=== PATIENT | male | born 1945 | race Caucasian/White ===

== ENCOUNTER 2022-08-08 18:55 | Inpatient (IN) | payer OTHER ==
[~2022-08-08] VITALS: Ht 190.5 cm; Wt 101.4 kg
[2022-08-08] MEDS ORDERED: methylPREDNISolone SOD SUCC 125 MG/2 ML VL IV ONE (19:15)
[2022-08-08 19:43] LABS: Basophils # (auto) 0 10 ^3/uL (0-0.2); Basophils % (auto) 0.3 % (0.0-2.0); Eosinophils # (auto) 0.2 10 ^3/uL (0-0.8); Hematocrit 45.2 % (41.0-53.0); Hemoglobin 15.4 g/dL (13.5-17.5); Lymphocytes # (auto) 1.7 10 ^3/uL (0.4-5.4); Lymphocytes % (auto) 15.8 % (10.0-50.0); Mean Corpuscular Hemoglobin 30.4 pg (28.0-32.0); Mean Corpuscular Hgb Conc. 34.1 g/dL (32.0-36.0); Mean Corpuscular Volume 89.3 fL (80.0-100.0); Monocytes # (auto) 0.9 10 ^3/uL (0-1.3); Monocytes % (auto) 8.2 % (0.0-12.0); Neutrophils % (auto) 73.7 % (37.0-80.0); Red Blood Cells 5.06 10^6/uL (4.5-5.90); Red Cell Distribution Width 13.5 % (11.8-14.3); White Blood Cell 10.9 10^3/uL (4.4-10.8)
[2022-08-08 20:02] LABS: Albumin 3.4 g/dL (3.4-5.0); BUN/Creatinine Ratio 23.4; Calcium 9.4 mg/dL (8.5-10.1); Magnesium 1.9 mg/dL (1.6-2.6); Potassium 3.8 mmol/L (3.5-5.1)
[2022-08-08 20:04] LABS: Bilirubin, Total 0.6 mg/dL (0.2-1.0); Total Protein 7.4 g/dL (6.4-8.2)
[2022-08-08] MEDS ORDERED: HEPARIN SODIUM (PORCINE) 5000 UNITS/ML 1ML VIAL IV ONE (21:00)
[2022-08-08] MEDS ORDERED: HEPARIN DRIP/D5W 100UNITS/ML 250 ML IV SCH (21:00)
[2022-08-08 22:06] LABS: INR 1.08 (0.9-1.15); Partial Thromboplastin Time 29.3 sec (24.6-33.4)
[2022-08-08] MEDS ORDERED: NITROGLYCERIN 0.4 MG SL TAB SL PRN (22:45)
[2022-08-08] MEDS ORDERED: MORPHINE SULFATE INJ 2 MG/ml SYRG IV PRN (22:45)
[2022-08-08] MEDS ORDERED: ONDANSETRON HCL 4 MG/2 ML VIAL IV PRN (22:45)
[2022-08-08] MEDS: D5W/SOD CHLO 0.9% 1,000 ML IV SCH (23:17)
[2022-08-09 00:53] LABS: Urine Bacteria NONE SEEN /hpf (None Seen); Urine Blood 1+ /uL (Negative); Urine Mucus FEW (None Seen); Urine WBC 3 /hpf (0 - 3)
[2022-08-09 01:00] LABS: Urine Specific Gravity > 1.050 (1.001-1.035)
[2022-08-09 04:35] LABS: Basophils # (auto) 0 10 ^3/uL (0-0.2); Basophils % (auto) 0.1 % (0.0-2.0); Eosinophils # (auto) 0 10 ^3/uL (0-0.8); Eosinophils % (auto) 0.1 % (0.0-7.0); Hematocrit 44.9 % (41.0-53.0); Hemoglobin 15.3 g/dL (13.5-17.5); Lymphocytes % (auto) 12.6 % (10.0-50.0); Mean Corpuscular Hgb Conc. 34.2 g/dL (32.0-36.0); Mean Corpuscular Volume 87.7 fL (80.0-100.0); Monocytes # (auto) 0.2 10 ^3/uL (0-1.3); Neutrophils % (auto) 84.2 % (37.0-80.0); Nucleated Red Blood Cells % 0.1 %; Red Blood Cells 5.12 10^6/uL (4.5-5.90); Red Cell Distribution Width 13.8 % (11.8-14.3); White Blood Cell 8.3 10^3/uL (4.4-10.8)
[2022-08-09 04:39] LABS: INR 1.1 (0.9-1.15)
[2022-08-09 04:50] LABS: Albumin 3.1 g/dL (3.4-5.0); BUN/Creatinine Ratio 21.4; Potassium 4.3 mmol/L (3.5-5.1)
[2022-08-09 04:53] LABS: Bilirubin, Total 0.5 mg/dL (0.2-1.0)
[2022-08-09] MEDS: HEPARIN DRIP/D5W 100UNITS/ML 250 ML IV SCH ×2 (05:53→12:34)
[2022-08-09] MEDS: ASPirin 325 MG TAB PO ONE ×2 (08:47→08:48)
[2022-08-09] MEDS ORDERED: PANTOPRAZOLE 40 MG/10 ML VIAL INJ IV SCH (10:00)
[2022-08-09 11:01] LABS: INR 1.13 (0.9-1.15)
[2022-08-09] MEDS ORDERED: TRIATAB3 PO (11:04)
[2022-08-09] MEDS ORDERED: LOSA-69 PO (11:05)
[2022-08-09] MEDS ORDERED: PANT1INJ3 PO (11:05)
[2022-08-09 11:17] LABS: Partial Thromboplastin Time 75.4 sec (24.6-33.4)
[2022-08-09] MEDS: D5W/SOD CHLO 0.9% 1,000 ML IV SCH (12:05)
[2022-08-09 15:09] VITALS: BP 123/78
[2022-08-09 17:13] VITALS: BP 119/84
[2022-08-09] MEDS: ENOXAPARIN SOD 100 MG/1 ML SYRINGE SC SCH (17:44)
[2022-08-09 19:27] LABS: INR 1.12 (0.9-1.15); Partial Thromboplastin Time 48.1 sec (24.6-33.4)
[2022-08-10] MEDS: D5W/SOD CHLO 0.9% 1,000 ML IV SCH ×2 (01:25→14:45)
[2022-08-10 05:00] VITALS: BP 115/66
[2022-08-10] MEDS: ENOXAPARIN SOD 100 MG/1 ML SYRINGE SC SCH ×2 (05:26→17:09)
[2022-08-10 06:11] LABS: Basophils # (auto) 0 10 ^3/uL (0-0.2); Basophils % (auto) 0.1 % (0.0-2.0); Eosinophils # (auto) 0 10 ^3/uL (0-0.8); Eosinophils % (auto) 0.4 % (0.0-7.0); Hematocrit 40.8 % (41.0-53.0); Hemoglobin 14.2 g/dL (13.5-17.5); Lymphocytes % (auto) 17.2 % (10.0-50.0); Mean Corpuscular Hemoglobin 30.5 pg (28.0-32.0); Mean Corpuscular Hgb Conc. 34.8 g/dL (32.0-36.0); Mean Corpuscular Volume 87.8 fL (80.0-100.0); Monocytes # (auto) 0.9 10 ^3/uL (0-1.3); Monocytes % (auto) 7.3 % (0.0-12.0); Neutrophils # (auto) 8.7 10 ^3/uL (1.6-8.6); Red Blood Cells 4.64 10^6/uL (4.5-5.90); Red Cell Distribution Width 13.8 % (11.8-14.3); White Blood Cell 11.6 10^3/uL (4.4-10.8)
[2022-08-10 06:25] LABS: Albumin 2.9 g/dL (3.4-5.0); BUN/Creatinine Ratio 24.8; Calcium 8.8 mg/dL (8.5-10.1); Potassium 3.9 mmol/L (3.5-5.1)
[2022-08-10 06:28] LABS: Bilirubin, Total 0.5 mg/dL (0.2-1.0)
[2022-08-10 09:00] VITALS: BP 114/73
[2022-08-10] MEDS: PANTOPRAZOLE 40 MG TAB PO SCH (09:09)
[2022-08-10] MEDS: ASPirin 81 mg TAB PO SCH (09:09)
[2022-08-10 13:00] VITALS: BP 114/74
[2022-08-10 17:00] VITALS: BP 107/70
[2022-08-10 22:21] VITALS: BP 116/71
[2022-08-11 05:09] LABS: Basophils # (auto) 0.1 10 ^3/uL (0-0.2); Basophils % (auto) 0.9 % (0.0-2.0); Eosinophils # (auto) 0.1 10 ^3/uL (0-0.8); Eosinophils % (auto) 2.1 % (0.0-7.0); Hematocrit 39.7 % (41.0-53.0); Hemoglobin 13.6 g/dL (13.5-17.5); Lymphocytes # (auto) 1.8 10 ^3/uL (0.4-5.4); Lymphocytes % (auto) 28.1 % (10.0-50.0); Mean Corpuscular Hemoglobin 30.4 pg (28.0-32.0); Mean Corpuscular Hgb Conc. 34.1 g/dL (32.0-36.0); Mean Corpuscular Volume 88.9 fL (80.0-100.0); Monocytes # (auto) 0.6 10 ^3/uL (0-1.3); Monocytes % (auto) 9.7 % (0.0-12.0); Neutrophils # (auto) 3.9 10 ^3/uL (1.6-8.6); Neutrophils % (auto) 59.2 % (37.0-80.0); Red Blood Cells 4.47 10^6/uL (4.5-5.90); Red Cell Distribution Width 13.7 % (11.8-14.3); White Blood Cell 6.6 10^3/uL (4.4-10.8)
[2022-08-11 05:26] LABS: Albumin 2.8 g/dL (3.4-5.0); Calcium 8.5 mg/dL (8.5-10.1); Potassium 4.2 mmol/L (3.5-5.1)
[2022-08-11 05:29] LABS: BUN/Creatinine Ratio 27.4
[2022-08-11 05:30] VITALS: BP 110/68
[2022-08-11 05:32] LABS: Bilirubin, Total 0.5 mg/dL (0.2-1.0); Total Protein 5.7 g/dL (6.4-8.2)
[2022-08-11] MEDS: ENOXAPARIN SOD 100 MG/1 ML SYRINGE SC SCH ×2 (05:34→17:15)
[2022-08-11 08:04] VITALS: BP 111/69
[2022-08-11] MEDS: ASPirin 81 mg TAB PO SCH (09:56)
[2022-08-11] MEDS: PANTOPRAZOLE 40 MG TAB PO SCH (09:56)
[2022-08-11 12:26] VITALS: BP 113/68
[2022-08-11 17:00] VITALS: BP 128/76
[2022-08-11 20:00] VITALS: BP 120/74
[2022-08-11 22:00] VITALS: BP 120/74
[2022-08-12 05:00] VITALS: BP 121/66
[2022-08-12] MEDS: ENOXAPARIN SOD 100 MG/1 ML SYRINGE SC SCH ×2 (06:52→17:37)
[2022-08-12 07:48] LABS: Basophils # (auto) 0 10 ^3/uL (0-0.2); Basophils % (auto) 0.6 % (0.0-2.0); Eosinophils # (auto) 0.2 10 ^3/uL (0-0.8); Eosinophils % (auto) 2.5 % (0.0-7.0); Hematocrit 40.6 % (41.0-53.0); Hemoglobin 13.4 g/dL (13.5-17.5); Lymphocytes # (auto) 1.7 10 ^3/uL (0.4-5.4); Lymphocytes % (auto) 27.1 % (10.0-50.0); Mean Corpuscular Hemoglobin 29.6 pg (28.0-32.0); Mean Corpuscular Hgb Conc. 33.1 g/dL (32.0-36.0); Mean Corpuscular Volume 89.6 fL (80.0-100.0); Monocytes # (auto) 0.7 10 ^3/uL (0-1.3); Monocytes % (auto) 10.6 % (0.0-12.0); Neutrophils # (auto) 3.7 10 ^3/uL (1.6-8.6); Neutrophils % (auto) 59.2 % (37.0-80.0); Nucleated Red Blood Cells % 0.1 %; Red Blood Cells 4.53 10^6/uL (4.5-5.90); Red Cell Distribution Width 13.7 % (11.8-14.3); White Blood Cell 6.2 10^3/uL (4.4-10.8)
[2022-08-12 08:06] LABS: Potassium 3.7 mmol/L (3.5-5.1)
[2022-08-12 08:13] LABS: Albumin 2.7 g/dL (3.4-5.0); BUN/Creatinine Ratio 23.1; Bilirubin, Total 0.4 mg/dL (0.2-1.0); Calcium 8.6 mg/dL (8.5-10.1); Total Protein 5.9 g/dL (6.4-8.2)
[2022-08-12 09:00] VITALS: BP 136/85
[2022-08-12] MEDS: ASPirin 81 mg TAB PO SCH (09:34)
[2022-08-12] MEDS: PANTOPRAZOLE 40 MG TAB PO SCH (09:34)
[2022-08-12 12:43] VITALS: BP 117/77
[2022-08-12 17:01] VITALS: BP 143/77
[2022-08-12 20:00] VITALS: BP 136/88
[2022-08-12 22:00] VITALS: BP 139/88
[2022-08-13 05:00] VITALS: BP 118/76
[2022-08-13] MEDS: ENOXAPARIN SOD 100 MG/1 ML SYRINGE SC SCH ×2 (05:54→17:35)
[2022-08-13 08:01] LABS: Basophils # (auto) 0 10 ^3/uL (0-0.2); Basophils % (auto) 0.6 % (0.0-2.0); Eosinophils # (auto) 0.2 10 ^3/uL (0-0.8); Eosinophils % (auto) 2.8 % (0.0-7.0); Hematocrit 38.7 % (41.0-53.0); Hemoglobin 13.4 g/dL (13.5-17.5); Lymphocytes # (auto) 1.6 10 ^3/uL (0.4-5.4); Lymphocytes % (auto) 27.9 % (10.0-50.0); Mean Corpuscular Hemoglobin 30.2 pg (28.0-32.0); Mean Corpuscular Hgb Conc. 34.5 g/dL (32.0-36.0); Mean Corpuscular Volume 87.5 fL (80.0-100.0); Monocytes # (auto) 0.6 10 ^3/uL (0-1.3); Monocytes % (auto) 9.6 % (0.0-12.0); Neutrophils # (auto) 3.4 10 ^3/uL (1.6-8.6); Neutrophils % (auto) 59.1 % (37.0-80.0); Red Blood Cells 4.42 10^6/uL (4.5-5.90); Red Cell Distribution Width 13.4 % (11.8-14.3); White Blood Cell 5.8 10^3/uL (4.4-10.8)
[2022-08-13 08:14] LABS: Albumin 2.6 g/dL (3.4-5.0); BUN/Creatinine Ratio 16.7; Calcium 8.6 mg/dL (8.5-10.1); Potassium 3.8 mmol/L (3.5-5.1)
[2022-08-13 08:18] LABS: Bilirubin, Total 0.4 mg/dL (0.2-1.0); Total Protein 5.5 g/dL (6.4-8.2)
[2022-08-13 08:57] VITALS: BP 117/79
[2022-08-13] MEDS: PANTOPRAZOLE 40 MG TAB PO SCH (09:30)
[2022-08-13] MEDS: ASPirin 81 mg TAB PO SCH (09:30)
[2022-08-13 13:00] VITALS: BP 124/69
[2022-08-13 17:01] VITALS: BP 124/77
[2022-08-13 20:00] VITALS: BP 109/66
[2022-08-13 22:00] VITALS: BP 109/66
[2022-08-14 05:00] VITALS: BP 128/77
[2022-08-14 06:18] LABS: Basophils # (auto) 0 10 ^3/uL (0-0.2); Basophils % (auto) 0.8 % (0.0-2.0); Eosinophils # (auto) 0.2 10 ^3/uL (0-0.8); Eosinophils % (auto) 3.4 % (0.0-7.0); Lymphocytes # (auto) 1.7 10 ^3/uL (0.4-5.4); Lymphocytes % (auto) 31.3 % (10.0-50.0); Mean Corpuscular Hemoglobin 30.1 pg (28.0-32.0); Mean Corpuscular Hgb Conc. 34.2 g/dL (32.0-36.0); Monocytes # (auto) 0.5 10 ^3/uL (0-1.3); Monocytes % (auto) 9.5 % (0.0-12.0); Neutrophils # (auto) 2.9 10 ^3/uL (1.6-8.6); Nucleated Red Blood Cells % 0.1 %; Red Blood Cells 4.32 10^6/uL (4.5-5.90); Red Cell Distribution Width 13.7 % (11.8-14.3); White Blood Cell 5.3 10^3/uL (4.4-10.8)
[2022-08-14] MEDS: ENOXAPARIN SOD 100 MG/1 ML SYRINGE SC SCH (06:20)
[2022-08-14 08:10] VITALS: BP 127/66
[2022-08-14 09:00] VITALS: BP 127/66
[2022-08-14 09:30] LABS: Albumin 2.6 g/dL (3.4-5.0); Blood Urea Nitrogen 10 mg/dL (7-18); Calcium 8.3 mg/dL (8.5-10.1); Chloride 112 mmol/L (98-107); Potassium 3.9 mmol/L (3.5-5.1); Sodium 144 mmol/L (136-145)
[2022-08-14 09:33] LABS: Alanine Aminotransferase 63 U/L (16-61); Anion Gap 8 (5-15); Aspartate Aminotransferase 50 U/L (15-37); BUN/Creatinine Ratio 13.9; Carbon Dioxide 24 mmol/L (21-32); GFR African American 135 mL/min; GFR Non-African American 112 mL/min; Glucose 87 mg/dL (74-106)
[2022-08-14 09:34] LABS: Alkaline Phosphatase 75 U/L (45-117); Bilirubin, Total 0.4 mg/dL (0.2-1.0); Total Protein 5.3 g/dL (6.4-8.2)
[2022-08-14] MEDS: PANTOPRAZOLE 40 MG TAB PO SCH (09:51)
[2022-08-14] MEDS: ASPirin 81 mg TAB PO SCH (09:51)
[2022-08-14] MEDS ORDERED: APIX5TAB PO (11:59)
[2022-08-14 13:00] VITALS: BP 129/73
[2022-08-14 14:49] VITALS: BP 129/73
[2022-08-14] MEDS ORDERED: APIXABAN 5 MG TAB PO SCH (22:00)
[2022-08-22] MEDS ORDERED: APIXABAN 5 MG TAB PO SCH (10:00)
== END 2022-08-14 17:03 | disposition home or self-care (01) | DRG 175 ==
LOC: EDBD 18:55 → ER 18:55 → TELE 22:55 → TELE-CENTR 08-09 14:43
PROVIDERS: ADMIT Nurse Practitioner; ATTEND Student in an Organized Health Care Education/Training Program
DX: I26.99 Other pulmonary embolism without acute cor pulmonale (principal); J96.01 Acute respiratory failure with hypoxia; I82.401 Acute embolism and thrombosis of unspecified deep veins of right lower extremity; I10 Essential (primary) hypertension; E66.9 Obesity, unspecified; H91.90 Unspecified hearing loss, unspecified ear; Z20.822 Contact with and (suspected) exposure to COVID-19; K22.70 Barrett's esophagus without dysplasia; Z87.891 Personal history of nicotine dependence; Z68.27 Body mass index [BMI] 27.0-27.9, adult; Z74.01 Bed confinement status
CPT/HCPCS: 36415; 71275; 80053; 81001; 83605; 83735; 83880; 85025; 85379; 85610; 85730; 87040; 87426; 93005; 93306; 93970; 96365; 96366; 96375; 96376; 99291; C9113; G0378